=== PATIENT | female | born 2005 | race American Indian/Alaskan Native ===

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

== ENCOUNTER 2024-11-30 03:12 | Inpatient (IN) | payer MEDICAID ==
[2024-11-30] MEDS ORDERED: Ondansetron 4 MG/2 ML SDV IVPUSH PRN (03:35)
[2024-11-30] MEDS ORDERED: Carboprost Tromethamine 250 MCG/1 ML Amp IM PRN (03:35)
[2024-11-30] MEDS: Lactated Ringers 1,000 ML IV ONE (03:35)
[2024-11-30] MEDS ORDERED: Oxytocin/Lactated Ringers 30 UNIT/500 ML BAG IV SCH (03:45)
[2024-11-30] MEDS ORDERED: Sodium Chloride 0.9% 10 ML Syringe FLUSH PRN (03:52)
[2024-11-30 04:01] LABS: PLATELET COUNT,PLT 265.0 10^3/uL (150-450); RED BLOOD CELL COUNT 4.25 10^6/uL (4.2-5.4); WHITE BLOOD CELL COUNT,WBC 12.5 10^3/uL (5.0-10.0)
[2024-11-30] MEDS: Lactated Ringers 1,000 ML IV SCH (06:00)
[2024-11-30] MEDS: Oxytocin/Normal Saline 30 UNIT/500 ML BAG IV SCH (06:56)
[2024-11-30] MEDS ORDERED: Witch Hazel Medicated Pads 100/Jar TOP PRN (07:44)
[2024-11-30] MEDS ORDERED: Benzocaine/Menthol 20%-0.5% Spray 78 GM Cannister TOP PRN (07:44)
[2024-11-30] MEDS ORDERED: Oxytocin 10 Units/1 ML SDV IM PRN (07:44)
[2024-11-30] MEDS: Ondansetron 4 MG/2 ML SDV IVPUSH PRN (08:30)
[2024-11-30] MEDS: Ondansetron 4 MG/2 ML SDV ONE (09:48)
[2024-11-30] MEDS: Prenatal Multivitamin with Calcium/Folic Acid/Iron Tab PO SCH (12:15)
[2024-12-01 07:50] LABS: PLATELET COUNT,PLT 227.0 10^3/uL (150-450); RED BLOOD CELL COUNT 3.86 10^6/uL (4.2-5.4); WHITE BLOOD CELL COUNT,WBC 10.3 10^3/uL (5.0-10.0)
[2024-12-01] MEDS ORDERED: Ropivacaine 100 ML EPIDUR ONE (14:44)
== END 2024-12-01 14:45 | disposition home or self-care (01) | DRG 806 ==
LOC: DL.OBCHECK 03:12 → DL.OB 04:01 → OBSVTOIN 07:21 → DL.OB 07:21
PROVIDERS: ADMIT Family Medicine; ATTEND Family Medicine
PROC: 10E0XZZ Delivery of Products of Conception, External Approach (ICD-10-PCS; principal; 2024-11-30)
PROC: 0HQ9XZZ Repair Perineum Skin, External Approach (ICD-10-PCS; 2024-11-30)
PROC: 3E0R3BZ Introduction of Anesthetic Agent into Spinal Canal, Percutaneous Approach (ICD-10-PCS; 2024-11-30)
PROC: 4A1HXCZ Monitoring of Products of Conception, Cardiac Rate, External Approach (ICD-10-PCS; 2024-11-30)
PROC: 00HU33Z Insertion of Infusion Device into Spinal Canal, Percutaneous Approach (ICD-10-PCS; 2024-11-30)
DX: O99.02 Anemia complicating childbirth (principal); O99.324 Drug use complicating childbirth; Z37.0 Single live birth; Z3A.38 38 weeks gestation of pregnancy; F12.90 Cannabis use, unspecified, uncomplicated; O70.0 First degree perineal laceration during delivery; O69.81X0 Labor and delivery complicated by cord around neck, without compression, not applicable or unspecified
CPT/HCPCS: 01967; 36415; 51701; 59409; 85027; 87210; A9270-GY; J2210; J2405; J2590; J2795; J7120